=== PATIENT | male | born 1960 | race Caucasian/White ===

== ENCOUNTER 2016-08-18 06:24 | Day surgery (SDC) | payer OTHER ==
[2016-08-16 09:16] VITALS: BMI 35.9
[~2016-08-18 06:24] MED LIST: CLINDAMYCIN 900 MG in DEXTROSE 5% IN WATER 50 ML IVPB ONE; DEXAMETHASONE SOD PHOSPHATE 10 MG/ML 1 ML VIAL IV ONE; HEPARIN SODIUM,PORCINE 5,000 UNIT/ML 1 ML VIAL SQ ONE; LACTATED RINGERS 1,000 ML IV SCH; MIDAZOLAM 2 MG/2 ML VIAL IV PRN; ONDANSETRON 4 MG/2 ML VIAL IVP ONE; SCOPOLAMINE 1.5MG/72HR PATCH TRANSDERM ONE
[2016-08-18] MEDS ORDERED: LIDOCAINE 1% 20 ML VIAL (10MG/ML) FOR IV START INTRADERMA ONE (06:41)
[2016-08-18 07:02] LABS: CH 29.7; RDW 13.3 % (11.5-15.5)
[2016-08-18 07:04] LABS: Basophils # (A) 0.1 k/uL (0-0.2); Basophils % (A) 1 %; CHCM 34.9; Eosinophils # (A) 0.1 k/uL (0-0.7); Eosinophils % (A) 2 %; HCT 50.7 % (39.0-53.0); HDW 2.88; HGB 17.2 gm/dL (13.0-17.5); Luc # (Auto) 0.08; Luc % (Auto) 1; Lymphocytes % (A) 30 %; MCHC 33.9 g/dL (31.0-37.0); MCV 85.5 fL (80.0-100.0); Monocytes # (A) 0.5 k/uL (0-1.0); Monocytes % (A) 7 %; Neutrophils # (A) 3.9 k/uL (1.3-7.7); Neutrophils % (A) 59 %; RBC 5.93 m/uL (4.30-5.90); WBC 6.6 k/uL (3.8-10.6); WBC (Perox) 6.03
--- NOTE | 2016-08-18 07:07 | P.GSHP ---
History of Present Illness H&P Date: 08/18/16 CHIEF COMPLAINT: Cholecystitis HISTORY OF PRESENT ILLNESS: The patient is a 55-year-old male who presents with history of epigastric including right upper quadrant abdominal pain. He underwent diagnostic studies for her gallbladder. Separately his clinical picture was consistent with cholecystitis. Now he presents for surgical intervention. PAST MEDICAL HISTORY: Please see list PAST SURGICAL HISTORY: Please see list MEDICATIONS: Please see list ALLERGIES: Denies. SOCIAL HISTORY: No illicit drug use or recent tobacco use FAMILY HISTORY: Pertinent for gallbladder disease REVIEW OF ORGAN SYSTEMS: CONSTITUTIONAL: No reports of fevers or chills. HEENT: Denies any troubles with the vision or hearing. PHYSICAL EXAM: VITAL SIGNS: Afebrile vital signs stable GENERAL: Well-developed pleasant in no acute distress. HEENT: No scleral icterus. Extraocular movements grossly intact. Moist buccal mucosa. NECK: Supple without lymphadenopathy. CHEST: Unlabored respirations. Equal bilateral excursions. CARDIOVASCULAR: Regular rate regular rhythm rhythm. Distal 2+ pulses. ABDOMEN: Soft, nondistended. Tender along the epigastrium and right upper quadrant. MUSCULOSKELETAL: No clubbing, cyanosis, or edema. NEURO: Cranial nerves II to XII within normal limits. No focal or lateralizing signs. PSYCH: Alert and oriented to person, place and time. ASSESSMENT: 1. Epigastric and right upper quadrant abdominal pain 2. Chronic cholecystitis PLAN: 1. Will need a laparoscopic cholecystectomy possible open. Benefits and risks were described. 2. Heparin for DVT prophylaxis 5000 units. 3. Antibiotic prophylaxis. Past Medical History Past Medical History: Hypertension Additional Past Medical History / Comment(s): FREQUENT HEADACHES, TOLD RECENT CT SHOWED GROWTH ON RIGHT KIDNEY. History of Any Multi-Drug Resistant Organisms: None Reported Past Surgical History: Appendectomy, Orthopedic Surgery Additional Past Surgical History / Comment(s): LEFT KNEE ARTHROSCOPY Past Anesthesia/Blood Transfusion Reactions: Previous Problems w/ Anesthesia, Motion Sickness Additional Past Anesthesia/Blood Transfusion Reaction / Comment(s): TOLD HE WAS A DIFFICULT INTUBATION "THROAT THICK" Past Psychological History: Anxiety, Depression Smoking Status: Former smoker Past Alcohol Use History: Occasional Additional Past Alcohol Use History / Comment(s): QUIT SMOKING 25 YRS AGO. SMOKED APPROX 3 YEARS-OCCASIONAL SOMEDAY SMOKER Past Drug Use History: None Reported - Past Family History Mother Family Medical History: No Reported History Medications and Allergies Home Medications Medication Instructions Recorded Confirmed Type Enalapril [Vasotec] 10 mg PO HS 08/16/16 08/18/16 History Naproxen [Naprosyn] 250 mg PO DIRECTED PRN 08/16/16 08/18/16 History Sertraline [Zoloft] 100 mg PO HS 08/16/16 08/18/16 History Allergies Allergy/AdvReac Type Severity Reaction Status Date / Time Penicillins Allergy Unknown FELT WEAK Verified 08/18/16 06:36 AND PASSED OUT Surgical - Exam Vital Signs Temp Pulse Resp BP Pulse Ox 97.9 F 67 16 131/74 96 08/18/16 06:37 08/18/16 06:37 08/18/16 06:37 08/18/16 06:37 08/18/16 06:37
[2016-08-18 07:10] LABS: Potassium 4.9 mmol/L (3.5-5.1)
[2016-08-18] MEDS ORDERED: MIDAZOLAM 2 MG/2 ML VIAL ONE (07:34)
[2016-08-18] MEDS ORDERED: GLYCOPYRROLATE 0.2 MG/ML 2 ML VIAL ONE (07:34)
[2016-08-18] MEDS ORDERED: PHENYLEPHRINE-0.9% NACL SYG 1 MG/10 ML SYRINGE ONE (07:34)
[2016-08-18] MEDS ORDERED: NEOSTIGMINE 1 MG/ML 10 ML VIAL ONE (07:34)
[2016-08-18] MEDS ORDERED: PROPOFOL 10 MG/ML 20 ML VIAL IV ONE (07:34)
[2016-08-18] MEDS ORDERED: LIDOCAINE 1% INJ 10MG/ML (20 ML MDV) ONE (07:34)
[2016-08-18] MEDS ORDERED: fentaNYL (PF) 50 MCG/ML 2 ML AMP ONE (07:34)
[2016-08-18] MEDS ORDERED: SUCCINYLCHOLINE CHLORIDE 100 MG/5 ML SYR IV ONE (07:34)
[2016-08-18] MEDS ORDERED: ROCURONIUM BROMIDE 10 MG/ML 10 ML VIAL IV ONE (07:34)
[2016-08-18] MEDS ORDERED: BUPIVACAIN-EPI 0.25%-1:200,000 30 ML VIAL SQ ONE ×2 (08:00)
--- NOTE | 2016-08-18 08:46 | P.OP ---
Date of Procedure: 08/18/16 Description of Procedure: SURGEON: TAMMY TROTTER MD COBOL ENGINEER: None. PREOPERATIVE DIAGNOSES: 1. Chronic Cholecystitis. 2. Right upper quadrant abdominal pain. 3. Epigastric abdominal pain. 4. Obesity. 5. Body mass index 36.0 6. Essential hypertension. 7. Diffuse osteoarthritis. POSTOPERATIVE DIAGNOSES: 1. Chronic Cholecystitis. 2. Right upper quadrant abdominal pain. 3. Epigastric abdominal pain. 4. Obesity. 5. Body mass index 36.0 6. Essential hypertension. 7. Diffuse osteoarthritis. 8. Acute gastritis gastric cardia with recent bleed. 9. Acute gastric ulcer superficial gastric cardia OPERATION: 1. Laparoscopic cholecystectomy 2. Intraoperative esophagogastrojejunoscopy with biopsy along the antrum ANESTHESIA: General with 30 mL 0.25% Marcaine with epinephrine. ESTIMATED BLOOD LOSS: 5 mL. SPECIMENS REMOVED: 1. Gallbladder. 2. Antrum. COMPLICATIONS: None. INDICATIONS: The patient is a 54year-old male who presents with chronic cholecystitis. Surgical intervention with a laparoscopic cholecystectomy was described at length including injury to the biliary tree, bleeding, infection, need for further surgery. Informed consent was obtained. DESCRIPTION OF THE PROCEDURE: The patient was brought to the operating room, laid in supine position. After general induction, the abdomen was prepped and draped in a standard sterile fashion. Prior to incision, a timeout protocol was confirmed with surgical team regarding patient's name, procedure to be performed including preoperative medications for which she had received heparin 5000 units subcutaneously as well as bilateral SCDs for DVT prophylaxis. A transverse 5 mm incision was made above the umbilicus and off to the right of the midline. Please note the skin was localized prior to incision. A 0 degree 5-mm laparoscopic trocar entry was performed and entered into the peritoneal cavity. Diagnostic laparoscopy confirmed no injury to bowel, viscera or mesentery. The liver serosa was completely unremarkable. Next, two 5 mm trocars were placed along the right costal margin followed by a 11 mm port at the left upper quadrant. The patient was placed in steep reverse Trendelenburg position with the right side up. The gallbladder fundus was retracted over the dome of the liver. Initial attention was brought to the infundibulum which was gently retracted in the inferior lateral approach. Using a Kittner, the cystic duct including the cystic artery was carefully skeletonized. Using a large clip assistant grocery 2 clips were placed proximally, and 2 clip was placed distally along the cystic duct and then cut. Again care was taken to avoid any injury to the biliary tree as the common bile duct was clearly visualized during this portion of dissection. Next, the cystic artery was clipped twice proximally, once distally and then cauterized. The cystic structures were divided using a cordless Harmonic scalpel. Electro-Bovie cautery was used to remove the gallbladder from the hepatic fossa. Decompression of the gallbladder occurred. The abdomen was irrigated with 1 L normal saline until the aspirant was clear. Hemostasis was checked and found to be adequate. The gallbladder was removed from the abdominal cavity using an Endo Catch bag and passed off for further pathological analysis. All instruments and pneumoperitoneum were removed from the abdominal cavity. The fascial defect was less than 8 mm for the 11-mm port site. The rest of incisions were reapproximated using 4-0 Monocryl in an interrupted subcuticular fashion. A total of 30 mL of 0.25% Marcaine with epinephrine was infiltrated to all wounds for postop analgesia. Dermabond was applied to the skin. (Please see separate operative report for intraoperative esophagogastroduodenoscopy.) At the end of the procedure, needle, sponge, and instrument count was verified correct by surgical garment assembler. The patient had tolerated the procedure well and was taken to postanesthesia care unit in stable condition. Intraoperative films were discussed and reviewed with the patient's family who were pleased with the level of care. FINDINGS: 1. Chronic cholecystitis. 2. Unremarkable liver surface. 3. No inguinal hernias identified. Plan - Discharge Summary New Discharge Prescriptions: Hydrocodone/Acetaminophen [Rowdy 5-325] 1 - 2 each PO Q6HR PRN #30 tab PRN Reason: Pain Discharge Medication List Enalapril [Vasotec] 10 mg PO HS 08/16/16 [History] Sertraline [Zoloft] 100 mg PO HS 08/16/16 [History] Hydrocodone/Acetaminophen [Rowdy 5-325] 1 - 2 each PO Q6HR PRN #30 tab 08/18/16 [Rx] Follow up Appointment(s)/Referral(s): Tammy Trotter MD [STAFF PHYSICIAN] - 08/29/16 Patient Instructions/Handouts: *Surgery [facility] - Scopalamine Patch Instructions, Peptic Ulcer (GEN), Gastritis (DC), Diet for Stomach Ulcers and Gastritis (GEN) , Laparoscopic Cholecystectomy (DC), Low Fat Diet (GEN) Activity/Diet/Wound Care/Special Instructions: Avoid ibuprofen. Avoid naproxen. No fatty foods. Discharge Disposition: HOME SELF-CARE
--- NOTE | 2016-08-18 08:48 | P.PCN ---
Date of Procedure: 08/18/16 Description of Procedure: PREOPERATIVE DIAGNOSIS: Epigastric abdominal pain. Gastroesophageal reflux disease. History of moderate NSAID use. POSTOPERATIVE DIAGNOSIS: Acute gastritis with bleed. Acute superficial gastric ulcers, gastric cardia with recent bleed. Diaphragmatic hiatal hernia. Gastroesophageal reflux disease. OPERATION: Esophagogastroduodenoscopy with biopsies along antrum. SURGEON: Tammy Trotter MD ANESTHESIA: MAC. INDICATIONS: The patient is a 55-year-old male who presents with a history of reflux disease. Benefits and risks of the procedure were described. Informed consent was obtained. DESCRIPTION: The patient was brought into the endoscopy suite and laid in the left lateral decubitus position. An Olympus gastroscope was passed along the posterior oropharynx down to the distal esophagus where the squamocolumnar junction was encountered at 40 cm from the incisors. The stomach was entered and moderate bile reflux was found. Additional findings are listed below. Biopsies with cold forceps were obtained of the antrum. The first through third portion of the duodenum was examined and unremarkable. Retroflexion of the scope confirmed Hill grade 4 lower esophageal valve. The squamocolumnar junction demostrated acute LA grade A erosive esophagitis. The stomach was desufflated. The patient tolerated the procedure well. FINDINGS: Squamocolumnar junction 40 cm from the incisors. Diaphragmatic hiatus at 41 cm from the incisors. Hiatal hernia 1 cm. Hill grade 4 lower esophageal valve. LA grade A erosive esophagitis. No active duodenitis. Acute gastritis superficial gastric cardia with recent bleed. Acute superficial gastric ulcers along gastric cardia with recent bleed RECOMMENDATIONS: Start medical therapy. Further recommendations pending results of pathology report. Upper endoscopy as needed.
[2016-08-18] MEDS ORDERED: NALOXONE 0.4 MG/ML 1 ML VIAL IV PRN (08:49)
[2016-08-18] MEDS ORDERED: ONDANSETRON 4 MG/2 ML VIAL IVP PRN (08:49)
[2016-08-18] MEDS ORDERED: HYDROcodone/APAP 5-325MG 1 EACH TAB PO PRN (08:49)
[2016-08-18] MEDS ORDERED: PROMETHAZINE 25 MG TAB PO PRN (08:49)
[2016-08-18 08:58] VITALS: TEMP 97.4
[2016-08-18 09:13] VITALS: RESP 16
[2016-08-18] MEDS: HYDROmorphone 1 MG/ML 1 ML SYRINGE IVP PRN ×2 (09:16→09:21)
[2016-08-18 11:35] VITALS: BP 121/75; PULSE 72
== END 2016-08-18 11:33 | disposition home or self-care (01) ==
LOC: OR 06:24
PROVIDERS: ATTEND Surgery Plastic and Reconstructive Surgery
DX: K81.1 Chronic cholecystitis (principal); K22.10 Ulcer of esophagus without bleeding; K25.0 Acute gastric ulcer with hemorrhage; K29.50 Unspecified chronic gastritis without bleeding; K44.9 Diaphragmatic hernia without obstruction or gangrene; I10 Essential (primary) hypertension; M19.90 Unspecified osteoarthritis, unspecified site; F41.9 Anxiety disorder, unspecified; F32.9 Major depressive disorder, single episode, unspecified; E66.9 Obesity, unspecified; Z68.36 Body mass index [BMI] 36.0-36.9, adult; Z88.0 Allergy status to penicillin; Z79.1 Long term (current) use of non-steroidal anti-inflammatories (NSAID); Z79.899 Other long term (current) drug therapy; Z87.891 Personal history of nicotine dependence; Z90.49 Acquired absence of other specified parts of digestive tract
CPT/HCPCS: 93005; 88304; 88305; 80051; 85025; 88342; 47562; 43239; J2250; J1644; J1100; J2710; J2405; J2001; J3010; J1170; J2370; J0330; J2704

== ENCOUNTER → 2018-09-18 | Outpatient (CLI) | payer BC ==
--- NOTE | 2018-09-18 23:20 | CONS ---
CONSULTATION DATE OF SERVICE: 09/18/2018 This patient is a 57-year-old gentleman who has been evaluated in the sleep center for possible obstructive sleep apnea-hypopnea syndrome. HISTORY OF PRESENT ILLNESS/SLEEP-WAKE EVALUATION: The patient does not have set hours for his sleep. It is dependent on his work schedule. He usually sleeps around 4 hours per night. No problem with falling asleep. No TV in bedroom. He sleeps on the side or back position. He snores loudly, according to his . He wakes up from sleep 2 times with 2 episodes of nocturia. His weight has increased from about 180 pounds to 217 pounds over the last 5 years. In the morning he wakes up tired, falling asleep during the day, has episodes of irritability, depression, anxiety, sexual dysfunction. [place] Sleepiness Scale is 7. PAST MEDICAL HISTORY: Positive for: 1. Hypertension. 2. Depression. 3. Hyperlipidemia. MEDICATIONS: 1. Vasotec. 2. Zoloft. 3. Crestor. PAST SURGICAL HISTORY: Status post left knee surgery and cholecystectomy. SOCIAL HISTORY: Positive for smoking many years ago. Quit around 30 years ago. Alcohol consumption occasional. FAMILY HISTORY: Hypertension, stroke, bronchitis. REVIEW OF SYSTEMS: Awakenings from sleep, sleepiness during the day. PHYSICAL EXAMINATION: GENERAL: A pleasant gentleman without distress. VITAL SIGNS: BP 143/74, HR 102, RR 16, height 5 feet 4 inches, weight 217.2 pounds, body mass index 37.2, temperature 98.5, oxygen saturation at room air 97%. HEENT: PERRLA, EOMI. Evaluation of oropharynx showed tongue protrudes midline. Low position of soft palate. Mallampati III. Restriction of nasal breathing. NECK: Supple. No JVD. Thyroid is not palpable. Wide neck; 19-1/2 inches in circumference. LUNGS: Clear to percussion and to auscultation. Good air exchange. No wheezing or rhonchi. HEART: S1, S2 regular. No murmurs, gallops or rubs. ABDOMEN: Obese. EXTREMITIES: No clubbing or cyanosis. SOLE INKER: Awake, alert, and oriented X3. Cranial nerves 2 to 7 intact. There is no fasciculation or atrophy. noted. No focal deficits observed. IMPRESSION: 1. Loud snoring, low position of soft palate, awakenings from sleep, wide neck, sleepiness during the day; obstructive sleep apnea-hypopnea syndrome. 2. Obesity; body mass index 37.2. 3. Hypertension. 4. Depression. 5. Hyperlipidemia. 6. Status post left knee surgery. 7. Status post cholecystectomy. 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 PLAN: 1. Polysomnography for evaluation of patient's breathing during sleep. 2. CPAP/BiPAP titration if sleep study confirms obstructive sleep apnea-hypopnea syndrome. 3. Preferable position during sleep on the side. 4. No driving if patient feels any sleepiness. 5. I will see patient for follow up visit to explain results of testing and following plan. Thank you very much for referring this patient for consultation. Sincerely, Alvarez Hester MD, PhD, FAASM Diplomat of [place] [employer] [place] [employer] Seasonal Package Handler of [facility] [place] MMODL / ARLENEN: [id number] /
== END ==
LOC: SLEEP 15:34
PROVIDERS: ATTEND Internal Medicine
DX: G47.33 Obstructive sleep apnea (adult) (pediatric) (principal); E66.9 Obesity, unspecified; I10 Essential (primary) hypertension; F32.9 Major depressive disorder, single episode, unspecified; E78.5 Hyperlipidemia, unspecified; Z90.49 Acquired absence of other specified parts of digestive tract; Z98.890 Other specified postprocedural states; Z68.37 Body mass index [BMI] 37.0-37.9, adult; Z99.89 Dependence on other enabling machines and devices; Z79.899 Other long term (current) drug therapy; Z87.891 Personal history of nicotine dependence
CPT/HCPCS: 99211

== ENCOUNTER → 2019-01-16 | Outpatient (CLI) | payer BC ==
--- NOTE | 2019-01-16 12:50 | SFUN ---
SLEEP CENTER FOLLOW UP NOTE DATE OF SERVICE: 01/16/2019 This 58-year-old gentleman had been followed in sleep center for treatment of obstructive sleep apnea-hypopnea syndrome. Home sleep apnea test showed apnea-hypopnea index 18.1 with oxygen desaturation to 86%. The patient was started on treatment with auto PAP and today is his first visit after he started to use it. The patient is able to use the equipment without significant problems related to the pressure, but with the usage of nasal pillow mask, he feels that he still opening his mouth during the sleep. He feels much better with the usage of CPAP versus before. Sleeps better and feels better during the day. [place] Sleepiness Scale today is 8. I explained the results of the home sleep apnea test to the patient in detail. I checked his CPAP unit. It is an automatic regimen, range of the pressure 5 to 15, most of the time pressure in the range of 12.4 cm of water. Leak is 20 L/minute, average was again with nasal pillows and patient has tendency to open mouth, but the leak is borderline. Apnea-hypopnea index while the patient using machine is only 1.6, which is normal. Usage is 25 out of 30 nights and 18 out of 30 nights for more than 4 hours with average usage 5.2 hours. MEDICATIONS: Vasotec, Zoloft, Crestor. PHYSICAL EXAMINATION: During physical exam, patient in no distress. VITAL SIGNS: BP 134/83, HR 71, RR 14, weight 216, temp 97.5, oxygen saturation at room air 97% on room. HEENT: PERRLA, EOMI. Oropharynx low position of soft palate, Mallampati 3-4, pillars. NECK: Supple, no JVD. Thyroid is not palpable. LUNGS: Clear to percussion and to auscultation. Good air exchange. No wheezing or rhonchi. HEART: S1, S2 regular. No murmurs, gallops, or rubs. ABDOMEN: Obese. EXTREMITIES: No clubbing or cyanosis. MARKETING WRITER: Awake, alert, and oriented X3. Cranial nerves 2 to 7 intact. There is no fasciculation or atrophy. noted. No focal deficits observed. IMPRESSION: 1. Obstructive sleep apnea-hypopnea syndrome; respiration normalized on treatment with CPAP. 2. Obesity. 3. Hypertension. 4. History of depression. 5. Hyperlipidemia. 6. Status post left knee surgery. 7. Status post cholecystectomy. 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 PLAN: 1. Patient will continue to use CPAP equipment every night for the whole night. 2. Losing weight. 3. Sleep hygiene with regular time in bed for 7-1/2 hours. 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 No driving if feeling sleepiness. Patient is aware of both civil and criminal liability for unsafe driving. 5. Follow-up visit in 1 month to document full compliance with treatment. Thank you very much for allowing me to participate in management of your patient. Sincerely, Alvarez Hester MD, PhD, FAASM Diplomat of [place] [employer] [place] [employer] Software Engineer Developer of [facility] [place] MMGISSELL / ARLENEN: [id number] /
== END | disposition home or self-care (01) ==
LOC: SLEEP 10:52
PROVIDERS: ATTEND Internal Medicine
DX: G47.33 Obstructive sleep apnea (adult) (pediatric) (principal); E66.9 Obesity, unspecified; I10 Essential (primary) hypertension; E78.5 Hyperlipidemia, unspecified; Z86.59 Personal history of other mental and behavioral disorders; Z99.89 Dependence on other enabling machines and devices; Z90.49 Acquired absence of other specified parts of digestive tract; Z98.890 Other specified postprocedural states; Z79.899 Other long term (current) drug therapy

== ENCOUNTER → 2019-02-27 | Outpatient (CLI) | payer BC ==
--- NOTE | 2019-02-27 14:18 | PN ---
PROGRESS NOTE DATE OF SERVICE: 02/27/2019 This patient is a 58-year-old gentleman who has been followed in the sleep center for treatment of obstructive sleep apnea-hypopnea syndrome. The patient was started on treatment with CPAP about 2 months ago. At present he is able to use CPAP equipment every night for the whole night. No complaints of any sleepiness. [place] Sleepiness Scale today is 7. I checked the patient's CPAP unit. Range of the pressure is from 5 to 15, average pressure 14.4. Usage is 29/30 nights, with average usage 7.4 hours; and in 29/30 nights more than 4 hours. Leak is 43 L/minute, but apnea-hypopnea index is totally normal at only 1.0. MEDICATIONS: 1. Vasotec. 2. Zoloft. 3. Crestor. PHYSICAL EXAMINATION: GENERAL: A pleasant patient in no distress. VITAL SIGNS: BP 134/80, HR 66, RR 16, height 5 feet 4 inches, weight 217 pounds. Temperature 97.9. Oxygen saturation at room air 99%. HEENT: PERRLA, EOMI. Evaluation of oropharynx showed tongue protrudes midline. Extremely low position of soft palate. Mallampati III to IV. NECK: Supple. No JVD. Thyroid is not palpable. LUNGS: Clear to percussion and to auscultation. Good air exchange. No wheezing or rhonchi. HEART: S1, S2 regular. No murmurs, gallops or rubs. ABDOMEN: Obese. EXTREMITIES: No clubbing or cyanosis. PLASTIC PRESS MOLDER: Awake, alert, and oriented X3. Cranial nerves 2 to 7 intact. There is no fasciculation or atrophy. noted. No focal deficits observed. IMPRESSION: 1. Obstructive sleep apnea-hypopnea syndrome. Patient demonstrated great compliance with treatment, benefitting from treatment. 2. Obesity. 3. Hypertension. 4. History of depression. 5. Hyperlipidemia. 6. Status post left knee surgery. 7. Status post cholecystectomy. 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 PLAN: 1. Patient will continue to use CPAP equipment every night for the whole night. 2. Sleep hygiene with regular time in bed for at least 7-1/2 hours. 3. Precautions related to driving. The patient demonstrated practically 100% compliance with treatment. He may continue to drive the truck, again with precautions. No driving if feeling any sleepiness. The patient is aware of civil and criminal liability for unsafe driving. 4. Losing weight. 5. I will maintain all necessary prescriptions for CPAP supplies, including mask, tube, filters. At present the patient is using a full-face mask. Thank you very much for allowing me to participate in the management of your patient. Sincerely, Alvarez Hester MD, PhD, FAASM Diplomat of [place] [employer] [place] [employer] Traffic Maintenance Supervisor of [facility] [place] MMODL / IJN: [id number] /
== END | disposition home or self-care (01) ==

== ENCOUNTER → 2019-07-31 | Outpatient (CLI) | payer OTHER ==
--- NOTE | 2019-07-31 20:42 | PN ---
PROGRESS NOTE DATE OF SERVICE: 07/31/2019 58-year-old gentleman who has been followed in Sleep Center for treatment of obstructive sleep apnea-hypopnea syndrome. The patient continued to use his CPAP equipment, but recently had some teeth problems and was not able to use machine for several days. [place] Sleepiness Scale slightly increased to 13. SLEEP SCHEDULE: His sleep schedule from 10 to 11 p.m. until 5:00 am. The patient's says he started to snore recently with the machine. I checked CPAP unit, range of the pressure 5-15, average pressure 13.2 cm of water. Leak is 34 L/minute which is slightly high. The patient is using full-face mask and possibly this is the reason for occasional snoring. For the last year since patient received the machine he used it for 200 nights and 152 nights for more than 4 hours. Total amount of time when patient on the machine is 258 nights. Apnea-hypopnea index is only 1.9, which is absolutely normal. MEDICATIONS: Vasotec, Zoloft, Crestor. PHYSICAL EXAM: Patient in no distress. BP 151/86, HR 87, RR 16, height 5 feet and 4 inches. Weight 217.2, which is about the same as one year ago, temperature 98.3, oxygen saturation at room air 97%. Oropharynx Mallampati 3-4. NECK: Supple, no JVD. Thyroid is not palpable. LUNGS: Clear to percussion and to auscultation. Good air exchange. No wheezing or rhonchi. HEART: S1, S2 regular. No murmurs, gallops, or rubs. ABDOMEN: Obese. Soft and nontender. Bowel sounds are present. No organomegaly appreciated. EXTREMITIES: No clubbing or cyanosis. BLACK AND WHITE PRINTER OPERATOR: Awake, alert, and oriented X3. Cranial nerves 2 to 7 intact. There is no fasciculation or atrophy. noted. No focal deficits observed. IMPRESSION: 1. Obstructive sleep apnea-hypopnea syndrome, normal respiration by reading from CPAP machine, benefitting from treatment. 2. Sometimes high range of leak from the full-face mask. 3. Obesity. 4. Hypertension. 5. History of depression. 6. Hyperlipidemia. 7. Status post left knee surgery. 8. Status post cholecystectomy. 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 PLAN: 1. Patient should continue to use CPAP equipment every night for the whole night and he promised to do so. 2. Losing weight. 3. Sleep hygiene with regular time in bed for at least 7 a half to 8 hours. 4. No driving if feeling sleepiness. 5. The patient is aware about civil and criminal liability for unsafe driving, promised to follow recommendations. 6. Consider to use DreamWear mask. 7. Prescription for all necessary supplies including mask, tube, filters. Thank you very much for allowing me to participate in the management of your patient. Sincerely, Alvarez Hester MD, PhD, FAASM Diplomat of [place] [employer] [place] [employer] Meat Lugger of [facility] [place] MMODL / IJN: [id number] /
== END | disposition home or self-care (01) ==
LOC: SLEEP 15:23
PROVIDERS: ATTEND Internal Medicine
DX: G47.33 Obstructive sleep apnea (adult) (pediatric) (principal); E66.9 Obesity, unspecified; I10 Essential (primary) hypertension; E78.5 Hyperlipidemia, unspecified; Z86.59 Personal history of other mental and behavioral disorders; Z68.37 Body mass index [BMI] 37.0-37.9, adult; Z96.652 Presence of left artificial knee joint; Z90.49 Acquired absence of other specified parts of digestive tract; Z79.899 Other long term (current) drug therapy

== ENCOUNTER 2020-02-19 07:27 | Day surgery (SDC) | payer OTHER ==
[2020-02-17 13:28] VITALS: BMI 36.8
[~2020-02-19 07:27] MED LIST changes: -CLINDAMYCIN 900 MG in DEXTROSE 5% IN WATER 50 ML IVPB ONE; -DEXAMETHASONE SOD PHOSPHATE 10 MG/ML 1 ML VIAL IV ONE; -HEPARIN SODIUM,PORCINE 5,000 UNIT/ML 1 ML VIAL SQ ONE; -MIDAZOLAM 2 MG/2 ML VIAL IV PRN; -ONDANSETRON 4 MG/2 ML VIAL IVP ONE; -SCOPOLAMINE 1.5MG/72HR PATCH TRANSDERM ONE
--- NOTE | 2020-02-19 07:31 | P.GSHP ---
History of Present Illness H&P Date: 02/19/20 CHIEF COMPLAINT: Colon screen HISTORY OF PRESENT ILLNESS: The patient is a 59-year-old male who presents for colon screen. Lower endoscopy was offered for further evaluation and management. PAST MEDICAL HISTORY: Please see list. PAST SURGICAL HISTORY: Please see list. MEDICATIONS: Please see list. ALLERGIES: Please see list. SOCIAL HISTORY: No illicit drug use FAMILY HISTORY: No reports of Crohn disease or ulcerative colitis. REVIEW OF ORGAN SYSTEMS: CONSTITUTIONAL: No reports of fevers or chills. PHYSICAL EXAM: VITAL SIGNS: Stable GENERAL: Well-developed pleasant in no acute distress. HEENT: No scleral icterus. Extraocular movements grossly intact. Moist buccal mucosa. NECK: Supple without lymphadenopathy. CHEST: Unlabored respirations. Equal bilateral excursions. CARDIOVASCULAR: Regular rate and rhythm. Distal 2+ pulses. ABDOMEN: Soft, nontender, nondistended. MUSCULOSKELETAL: No clubbing, cyanosis, or edema. ASSESSMENT: 1. Colon screen. PLAN: 1. Recommend proceeding with a lower endoscopy Past Medical History Past Medical History: Hypertension, Sleep Apnea/CPAP/BIPAP Additional Past Medical History / Comment(s): "runny stools with some blood" History of Any Multi-Drug Resistant Organisms: None Reported Past Surgical History: Appendectomy, Cholecystectomy, Orthopedic Surgery Additional Past Surgical History / Comment(s): LEFT KNEE ARTHROSCOPY Past Anesthesia/Blood Transfusion Reactions: Previous Problems w/ Anesthesia, Motion Sickness Additional Past Anesthesia/Blood Transfusion Reaction / Comment(s): TOLD HE WAS A DIFFICULT INTUBATION "THROAT THICK" with appendectomy Smoking Status: Former smoker - Past Family History Mother Family Medical History: No Reported History Medications and Allergies Home Medications Medication Instructions Recorded Confirmed Type Sertraline [Zoloft] 100 mg PO DAILY 08/16/16 02/17/20 History Aspirin [Adult Low Dose Aspirin EC] 81 mg PO DAILY 02/17/20 02/17/20 History Enalapril [Vasotec] 20 mg PO DAILY 02/17/20 02/17/20 History Ibuprofen [Motrin] 800 mg PO DIRECTED PRN 02/17/20 02/17/20 History busPIRone HCL 10 mg PO BID 02/17/20 02/17/20 History Allergies Allergy/AdvReac Type Severity Reaction Status Date / Time Penicillins Allergy Unknown FELT WEAK Verified 02/17/20 13:18 AND PASSED OUT
[2020-02-19 07:50] VITALS: TEMP 97.8
[2020-02-19] MEDS ORDERED: PROPOFOL 10 MG/ML 20 ML VIAL IV ONE (07:57)
[2020-02-19] MEDS ORDERED: LIDOCAINE 1% INJ 10MG/ML (20 ML MDV) ONE (07:57)
--- NOTE | 2020-02-19 08:35 | P.PCN ---
Date of Procedure: 02/19/20 Description of Procedure: PREOPERATIVE DIAGNOSIS: Change in bowel habits Rectal bleeding POSTOPERATIVE DIAGNOSIS: Sigmoid colon polyp Sigmoid stricture OPERATION: Colonoscopy to the ileocecal valve and appendiceal orifice, cecum Colonoscopy with cold forceps biopsies SURGEON: Tammy Trotter MD. ANESTHESIA: MAC. INDICATIONS: The patient is an 59-year-old male who presents with change in bowel habits and rectal bleeding. Benefits and risks were described and informed consent was obtained. DESCRIPTION OF PROCEDURE: The patient had undergone Suprep. He had been brought into the operating room and laid in the left lateral decubitus position. After adequate intravenous sedation, the rectum was examined with 2% lidocaine jelly. The prostate was unremarkable. No external hemorrhoids were encountered. The rectal tone was within normal limits. No lesions were palpated in the rectal vault. An Olympus colonoscope was advanced until the cecum, ileocecal valve and appendiceal orifice were clearly viewed. The prep was excellent. No sigmoid diverticulosis was encountered. A stricture of the sigmoid colon at 30 cm from the anal verge was identified. Multiple colonic polyps were found and removed with cold forceps. No evidence of focal colitis was found. Retroflexion of the scope de monstrated grade 1 internal hemorrhoids without active bleeding or inflammation. The colon was desufflated. The patient had tolerated the procedure well. Withdrawal time was over 6 minutes. FINDINGS: Aronchick preparation quality scale 1 (1-5) Internal hemorrhoids, grade 1 without recent inflammation or bleeding No external hemorrhoids No arteriovenous malformations. No sigmoid diverticulosis Sigmoid colon stricture at 30 cm from the anal verge Removal of 2 polyps from the proximal, mid transverse colon and descending colon: - Cold forceps biopsy at 20 cm from the anal verge, 3 and 4 mm polyp, sigmoid colon No focal colitis. RECOMMENDATIONS: Repeat colonoscopy in 5 years, 2024 Plan - Discharge Summary Discharge Rx Participant: No New Discharge Prescriptions: Continue Sertraline [Zoloft] 100 mg PO DAILY busPIRone HCL 10 mg PO BID Ibuprofen [Motrin] 800 mg PO DIRECTED PRN PRN Reason: Pain Enalapril [Vasotec] 20 mg PO DAILY Aspirin [Adult Low Dose Aspirin EC] 81 mg PO DAILY Discharge Medication List Sertraline [Zoloft] 100 mg PO DAILY 08/16/16 [History] Aspirin [Adult Low Dose Aspirin EC] 81 mg PO DAILY 02/17/20 [History] Enalapril [Vasotec] 20 mg PO DAILY 02/17/20 [History] Ibuprofen [Motrin] 800 mg PO DIRECTED PRN 02/17/20 [History] busPIRone HCL 10 mg PO BID 02/17/20 [History] Follow up Appointment(s)/Referral(s): Tammy Trotter MD [STAFF PHYSICIAN] - 02/26/20 Patient Instructions/Handouts: *Surgery [facility] - (Anesthesia) Endoscopy Discharge Instructions, Colorectal Polyps (DC), Colonoscopy (DC), Upper Endoscopy (DC) Activity/Diet/Wound Care/Special Instructions: Expect bleeding today up to 72 hours from scope. This is normal. Please stay well hydrated and drink plenty of fluids and rest. Repeat colonoscopy in 5 years, 2024 Discharge Disposition: HOME SELF-CARE
[2020-02-19 08:41] VITALS: BP 125/85; PULSE 87; RESP 16
== END 2020-02-19 09:07 | disposition home or self-care (01) ==
LOC: ORWHC2ENDO 07:27
PROVIDERS: ATTEND Surgery Plastic and Reconstructive Surgery
DX: K63.5 Polyp of colon (principal); K56.699 Other intestinal obstruction unspecified as to partial versus complete obstruction; K64.0 First degree hemorrhoids; I10 Essential (primary) hypertension; G47.33 Obstructive sleep apnea (adult) (pediatric); Z88.0 Allergy status to penicillin; Z99.89 Dependence on other enabling machines and devices; Z90.49 Acquired absence of other specified parts of digestive tract; Z98.890 Other specified postprocedural states; Z91.89 Other specified personal risk factors, not elsewhere classified; Z87.898 Personal history of other specified conditions; Z87.891 Personal history of nicotine dependence; Z79.899 Other long term (current) drug therapy; Z79.82 Long term (current) use of aspirin
CPT/HCPCS: 88305; 45380; J2001; J2704